=== PATIENT | female | born 1990 | race Caucasian/White ===

== ENCOUNTER 2016-11-13 23:11 | Emergency (ER) | payer MEDICAID ==
[2016-11-13] MEDS ORDERED: LIDOCAINE 1% 2 ML VIAL ONE (23:19)
[2016-11-13 23:28] VITALS: BP 117/72
[2016-11-13] MEDS ORDERED: TETANUS/DIPHTHERIA/PERTUSSIS 0.5 ML SYRINGE IM ONE (23:51)
--- NOTE | 2016-11-13 23:54 | ED Physician Documentation ---
PD HPI UPPER EXT INJURY - Stated complaint Stated Complaint: RT HAND LACERATION - Chief complaint Chief Complaint: Laceration - History obtained from History obtained from: Patient - History of Present Illness Location: Right, Hand Type of injury: Laceration Where injury occurred: Home Timing - onset: How many minutes ago (20) Timing - details: Abrupt onset Improved by: Immobilization Contributing factors: No: Anticoagulated Similar symptoms before: Has not had sx before Recently seen: Not recently seen - Additonal information Additional information: Patient is a 26 year old female with no significant past medical history who is presenting to the emergency department for a finger laceration. patient was trying to cut plastic off a board when she sliced her finger. Patient denied any other trauma and is unsure about her tetanus. Review of Systems Constitutional: denies: Fever, Chills Eyes: reports: Decreased vision, Photophobia Ears: reports: Loss of hearing, Ear pain Nose: denies: Epistaxis GI: denies: Nausea, Vomiting Skin: reports: Laceration (s) Musculoskeletal: reports: Extremity pain Neurologic: reports: Altered mental status. denies: Syncope, LOC Psychiatric: denies: Depressed Immunocompromised: denies: Immunocompromised PD PAST MEDICAL HISTORY - Past Medical History Past Medical History: Yes Respiratory: Asthma Psych: Anxiety Derm: Eczema - Past Surgical History Past Surgical History: No - Present Medications Home Medications: Ambulatory Orders Medication Instructions Recorded Confirmed Albuterol Sulfate 2 mg INH Q4HR PRN 12/27/13 04/06/16 - Allergies Allergies/Adverse Reactions: Allergies Allergy/AdvReac Type Severity Reaction Status Date / Time No Known Drug Allergies Allergy Verified 11/13/16 23:22 - Social History Does the pt smoke?: Yes Smoking Status: Current every day smoker Does the pt drink ETOH?: Yes Does the pt have substance abuse?: No - Immunizations Immunizations are current?: Yes - POLST Patient has POLST: No PD ED PE NORMAL - Vitals Vital signs reviewed: Yes - General General: Alert and oriented X 3, No acute distress - HEENT HEENT: Atraumatic, PERRL - Cardiac Cardiac: RRR, No murmur - Respiratory Respiratory: No respiratory distress - Abdomen Abdomen: Soft - Derm Derm: Normal color - Neuro Neuro: Alert and oriented X 3, No motor deficit, No sensory deficit, Normal speech - Psych Psych: Normal mood, Normal affect PD ED PE EXPANDED - Extremities Extremities: Right finger(s) (2cm laceration on dorsal surface of proximal right second digit) Results - Vitals Vitals: Vital Signs - 24 hr 11/13/16 23:19 Temperature 36.7 C Heart Rate 108 H Respiratory 18 Rate Blood Pressure 117/72 O2 Saturation 100 Oxygen O2 Source Room air Procedures - Laceration (location) right hand Length in cm: 2 Wound type: Curved Neurovascular status: Sensory intact, Motor intact, Vascular intact Anesthesia: Lidocaine 1% Wound Preparation: Chlorhexadine Skin layer closure: Size #-0 - enter number (4), Sutures - enter # (5) Other: Patient tolerated well, No complications, Neurovascular intact, Dressing applied, Tetanus booster given Complexity: Intermediate PD MEDICAL DECISION MAKING - ED course Complexity details: reviewed old records, re-evaluated patient, d/w patient ED course: Patient was seen and examined at bedside. Wound was cleaned and repaired as described above. Patient required no further work up at this time and was stable for discharge with outpatient follow up. Departure - Departure Disposition: 01 Home, Self Care Clinical Impression: Laceration Condition: Good Instructions: ED Laceration Hand Follow-Up: primary,care provider [Other] - As Needed (follow up with your pmd in 5-7 days for suture removal) Comments: Please keep your wound clean and dry. You can apply topical antiobitics if necessary. You should monitor for signs of infection, increased redness, worsening swelling, or discharge. You should follow up with your pmd for any of these symptoms. if not follow up in 5-7 days for suture removal with your pmd. You may return to the emergency department at any time for new, worsening or uncontrollable symptoms.
[2016-11-14] MEDS: BACITRACIN OINT TOP STA (00:06)
[2016-11-14] MEDS: TETANUS/DIPHTHERIA/PERTUSSIS 0.5 ML SYRINGE IM ONE (00:06)
== END 2016-11-14 00:17 | disposition home or self-care (01) ==
LOC: ED 23:11
DX: S61.210A Laceration without foreign body of right index finger without damage to nail, initial encounter (principal); W26.0XXA Contact with knife, initial encounter; Y92.018 Other place in single-family (private) house as the place of occurrence of the external cause; Z23 Encounter for immunization; J45.909 Unspecified asthma, uncomplicated; F17.200 Nicotine dependence, unspecified, uncomplicated
CPT/HCPCS: 12001; 90471; 99283

== ENCOUNTER 2017-03-13 16:21 | Outpatient (CLI) | payer MEDICAID | END 2017-03-13 16:22 | disposition critical access hospital (66) | LOC: EMS 16:21 | PROVIDERS: ATTEND Surgery | DX: O99.89 Other specified diseases and conditions complicating pregnancy, childbirth and the puerperium (principal); R10.30 Lower abdominal pain, unspecified | CPT/HCPCS: A0425; A0429 ==

== ENCOUNTER 2017-03-13 16:58 | Outpatient (CLI) | payer MEDICAID ==
[2017-03-13 17:04] VITALS: BP 90/64
[2017-03-13 18:15] LABS: BILIRUBIN,URINE NEGATIVE (NEGATIVE)
[2017-03-13 18:19] LABS: UA CHARGE (STRIP ONLY) YES; UR CULTURE IF IND NOT INDICATED
== END 2017-03-13 20:30 | disposition home or self-care (01) ==
LOC: WFO 16:58 → FBP 16:59 → WFO 20:30
PROVIDERS: ATTEND Obstetrics & Gynecology
DX: O46.93 Antepartum hemorrhage, unspecified, third trimester (principal); Z3A.34 34 weeks gestation of pregnancy
CPT/HCPCS: 80306; 81001; 81003; 82731; 87077; 87081; 87086; 87797; 99213

== ENCOUNTER 2017-04-18 19:39 | Outpatient (CLI) | payer MEDICAID ==
[2017-04-18 19:57] VITALS: BP 117/71
== END 2017-04-18 20:26 | disposition home or self-care (01) ==
LOC: WFO 19:39 → FBP 19:45 → WFO 20:26
PROVIDERS: ATTEND Obstetrics & Gynecology
DX: O36.8130 Decreased fetal movements, third trimester, not applicable or unspecified (principal); Z3A.39 39 weeks gestation of pregnancy
CPT/HCPCS: 59025

== ENCOUNTER 2017-09-10 08:00 | Outpatient (CLI) | payer MEDICAID ==
[2017-09-10 19:18] LABS: BASOPHILS % (AUTO) 0.4 %; EOSINOPHILS # (AUTO) 0.2 10^3/uL (0.0-0.7); EOSINOPHILS % (AUTO) 1.4 %; HGB - HEMOGLOBIN 12.7 g/dL (12.0-16.0); LYMPHOCYTES # (AUTO) 2.8 10^3/uL (1.5-3.5); LYMPHOCYTES % (AUTO) 25.2 %; MEAN CORPUSCULAR HEMOGLOBIN 24.9 pg (27.0-31.0); MEAN CORPUSCULAR HGB CONC 31.5 g/dL (32.0-36.0); MEAN CORPUSCULAR VOLUME 79.3 fL (81.0-99.0); MEAN PLATELET VOLUME 8.1 fL (7.9-10.8); MONOCYTES # (AUTO) 0.9 10^3/uL (0.0-1.0); MONOCYTES % (AUTO) 7.6 %; NEUTROPHILS # (AUTO) 7.4 10^3/uL (1.5-6.6); NEUTROPHILS % (AUTO) 65.4 %; PLT - PLATELET COUNT 404 10^3/uL (130-450); RED BLOOD COUNT 5.11 10^6/uL (4.20-5.40); RED CELL DISTRIBUTION WIDTH 14.6 % (12.0-15.0); WHITE BLOOD COUNT 11.3 x10^3/uL (4.8-10.8)
[2017-09-10 19:30] LABS: THYROID STIMULATING HORMONE 1.04 uIU/mL (0.34-5.60)
[2017-09-10 19:41] LABS: FOLATE 22.32 ng/mL (5.90 - >24.8)
== END 2017-09-10 08:01 | disposition home or self-care (01) ==
LOC: LAB.N 08:00
PROVIDERS: ATTEND Nurse Practitioner
DX: R53.83 Other fatigue (principal)
CPT/HCPCS: 36415; 82306; 82607; 82746; 84443; 85025

== ENCOUNTER 2020-07-19 18:52 | Emergency (ER) | payer MEDICAID ==
[2020-07-19] MEDS ORDERED: AZITHROMYCIN INJ 1,000 MG in SODIUM CHLORIDE 0.9% 250 ML IV ONE (18:53)
[2020-07-19 19:38] LABS: BILIRUBIN,URINE NEGATIVE (NEGATIVE); GLUCOSE, URINE (UA) NEGATIVE (NEGATIVE); KETONES,URINE (UA) NEGATIVE (NEGATIVE); LEUKOCYTE ESTERASE, URINE NEGATIVE (NEGATIVE); NITRITE,URINE NEGATIVE (NEGATIVE); OCCULT BLOOD,URINE NEGATIVE (NEGATIVE); PROTEIN,URINE NEGATIVE (NEGATIVE); UROBILINOGEN,URINE 0.2 (NORMAL) E.U./dL (NORMAL)
[2020-07-19 19:41] LABS: CLARITY,URINE CLEAR (CLEAR); HCG UR QUAL NEGATIVE
[2020-07-19 19:45] LABS: BASOPHILS # (AUTO) 0.1 10^3/uL (0.0-0.1); BASOPHILS % (AUTO) 0.3 %; EOSINOPHILS # (AUTO) 0.2 10^3/uL (0.0-0.7); EOSINOPHILS % (AUTO) 1.4 %; HGB - HEMOGLOBIN 13.3 g/dL (12.0-16.0); LYMPHOCYTES # (AUTO) 2.3 10^3/uL (1.5-3.5); MEAN CORPUSCULAR HGB CONC 32.4 g/dL (32.0-36.0); MEAN CORPUSCULAR VOLUME 89.5 fL (81.0-99.0); MEAN PLATELET VOLUME 9.1 fL (7.9-10.8); MONOCYTES # (AUTO) 1.1 10^3/uL (0.0-1.0); MONOCYTES % (AUTO) 6.8 %; NEUTROPHILS # (AUTO) 12.7 10^3/uL (1.5-6.6); NEUTROPHILS % (AUTO) 77.2 %; PLT - PLATELET COUNT 373 10^3/uL (130-450); RED BLOOD COUNT 4.58 10^6/uL (4.20-5.40); RED CELL DISTRIBUTION WIDTH 12.2 % (12.0-15.0); WHITE BLOOD COUNT 16.5 x10^3/uL (4.8-10.8)
[2020-07-19 20:00] LABS: ALBUMIN 4.4 g/dL (3.2-5.5); ALBUMIN/GLOBULIN RATIO 1.4 (1.0-2.2); BILIRUBIN,TOTAL 0.4 mg/dL (0.2-1.0); CALCIUM 9.4 mg/dL (8.5-10.3); CREATININE 0.6 mg/dL (0.4-1.0); TOTAL PROTEIN 7.5 g/dL (6.7-8.2)
--- NOTE | 2020-07-19 21:08 | ED Physician Documentation ---
PD HPI ABD PAIN - Stated complaint Stated Complaint: RT SIDE PX - Chief complaint Chief Complaint: Abd Pain - History obtained from History obtained from: Patient - History of Present Illness Timing - onset: Today Timing - duration: Days (She states she had lower abdominal pain particularly on the right which started migrated up towards the right upper quadrant abdomen and the right shoulder through the day. She has noticed a yellow vaginal discharge for the last couple of days.) Timing - details: Gradual onset, Still present Quality: Cramping, Aching, Pain Location: RUQ, Suprapubic Radiation: Right shoulder Improved by: No: Eating Worsened by: Moving, Breathing, Palpation. No: Eating Associated symptoms: Nausea, Vaginal dc (Last sexually active about 2 weeks ago with a new partner.). No: Fever, Vomiting, Diarrhea, Dysuria, Vaginal bleeding Similar symptoms before: Has not had sx before Recently seen: Not recently seen Review of Systems Constitutional: denies: Fever, Chills Nose: denies: Rhinorrhea / runny nose, Congestion Throat: denies: Sore throat Respiratory: denies: Cough GI: reports: Abdominal Pain, Nausea. denies: Vomiting, Diarrhea : reports: Discharge. denies: Dysuria, Frequency Skin: denies: Rash, Lesions Neurologic: reports: Generalized weakness. denies: Focal weakness, Numbness, Near syncope Immunocompromised: denies: Immunocompromised PD PAST MEDICAL HISTORY - Past Medical History Respiratory: Asthma Psych: Anxiety Derm: Eczema - Past Surgical History Past Surgical History: No - Present Medications Home Medications: Ambulatory Orders Medication Instructions Recorded Confirmed Albuterol Sulfate 2 mg INH Q4HR PRN 12/27/13 07/19/20 - Allergies Allergies/Adverse Reactions: Allergies Allergy/AdvReac Type Severity Reaction Status Date / Time No Known Drug Allergies Allergy Verified 07/19/20 19:12 - Social History Does the pt smoke?: Yes Smoking Status: Current every day smoker Does the pt drink ETOH?: Yes Does the pt have substance abuse?: No - Immunizations Immunizations are current?: Yes - POLST Patient has POLST: No PD ED PE NORMAL - Vitals Vital signs reviewed: Yes - General General: Alert and oriented X 3, Well developed/nourished, Other (Appears in pain and discomfort for abdominal pain. No pain with range of motion of the shoulder but states it does hurt there) - HEENT HEENT: Pharynx benign - Neck Neck: Supple, no meningeal sign, No adenopathy - Cardiac Cardiac: RRR, No murmur - Respiratory Respiratory: Clear bilaterally - Abdomen Abdomen: Normal bowel sounds, Soft, Non distended, No organomegaly, Other (Tender along the right abdomen both upper and lower quadrants. There is guarding to palpation. No percussion or rebound tenderness. There is some suprapubic tenderness as well with some mild rebound there.) - Female Female : Acute Care Certified Nursing Assistant present, Other (The external genitalia is normal. The vaginal vault shows considerable amount of yellow to greenish discharge. There is endocervical discharge with some redness and inflammation of the cervix as well. Tenderness on exam with the speculum.) - Rectal Rectal: Deferred - Back Back: No CVA TTP - Derm Derm: Normal color, Warm and dry Results - Vitals Vitals: Vital Signs - 24 hr 07/19/20 07/19/20 07/20/20 19:13 21:04 01:02 Temperature 37.5 C 36.5 C Heart Rate 100 99 Respiratory 22 16 Rate Blood Pressure 122/82 H 109/74 O2 Saturation 100 100 Oxygen O2 Source Room air - Labs Labs: Laboratory Tests 07/19/20 07/19/20 07/19/20 19:29 19:29 19:30 WBC 16.5 H RBC 4.58 Hgb 13.3 Hct 41.0 MCV 89.5 MCH 29.0 MCHC 32.4 RDW 12.2 Plt Count 373 MPV 9.1 Neut # (Auto) 12.7 H Lymph # (Auto) 2.3 Taylor # (Auto) 1.1 H Eos # (Auto) 0.2 Baso # (Auto) 0.1 Absolute Nucleated RBC 0.00 Nucleated RBC % 0.0 Sodium 139 Potassium 3.2 L Chloride 103 Carbon Dioxide 27 Anion Gap 9.0 BUN 15 Creatinine 0.6 Estimated GFR (MDRD) 116 Glucose 75 Calcium 9.4 Total Bilirubin 0.4 AST 18 ALT 12 Alkaline Phosphatase 66 Total Protein 7.5 Albumin 4.4 Globulin 3.1 Albumin/Globulin Ratio 1.4 Lipase 30 Urine Color YELLOW Urine Clarity CLEAR Urine pH 6.0 Ur Specific Drury 1.025 Urine Protein NEGATIVE Urine Glucose (UA) NEGATIVE Urine Ketones NEGATIVE Urine Occult Blood NEGATIVE Urine Nitrite NEGATIVE Urine Bilirubin NEGATIVE Urine Urobilinogen 0.2 (NORMAL) Ur Leukocyte Esterase NEGATIVE Ur Microscopic Review NOT INDICATED Urine Culture Comments NOT INDICATED Urine HCG, Qual NEGATIVE C. glabrata (PCR) C. krusei (PCR) Samreen species DNA T. vaginalis (PCR) Bact Vaginosis (PCR) 07/19/20 22:49 WBC RBC Hgb Hct MCV MCH MCHC RDW Plt Count MPV Neut # (Auto) Lymph # (Auto) Taylor # (Auto) Eos # (Auto) Baso # (Auto) Absolute Nucleated RBC Nucleated RBC % Sodium Potassium Chloride Carbon Dioxide Anion Gap BUN Creatinine Estimated GFR (MDRD) Glucose Calcium Total Bilirubin AST ALT Alkaline Phosphatase Total Protein Albumin Globulin Albumin/Globulin Ratio Lipase Urine Color Urine Clarity Urine pH Ur Specific Drury Urine Protein Urine Glucose (UA) Urine Ketones Urine Occult Blood Urine Nitrite Urine Bilirubin Urine Urobilinogen Ur Leukocyte Esterase Ur Microscopic Review Urine Culture Comments Urine HCG, Qual C. glabrata (PCR) NEGATIVE C. krusei (PCR) NEGATIVE Samreen species DNA NEGATIVE T. vaginalis (PCR) NEGATIVE Bact Vaginosis (PCR) POSITIVE A - Rads (name of study) abd CT Radiology: Prelim report reviewed (no acvute process), See rad report PD MEDICAL DECISION MAKING - ED course Complexity details: reviewed results (Normal abdominal CT. Given her vaginal discharge and tenderness there, I am presuming her abdominal pain is from tracking of infection through the tubes and into the gutter. She is improved with IV fluids and pain meds.), re-evaluated patient, considered differential (Seems likely pelvic infectious disease or vaginitis. However she is very tende r along the right abdomen so consider the possibility of tubo-ovarian abscess or appendix. We will get CT scan.), d/w patient Departure - Departure Disposition: 01 Home, Self Care Clinical Impression: Right sided abdominal pain, PID (acute pelvic inflammatory disease) Condition: Stable Record reviewed to determine appropriate education?: Yes Discharge Date/Time: 07/20/20 01:03
[2020-07-19] MEDS ORDERED: ONDANSETRON 4 MG/2 ML VIAL IVP STA (21:41)
[2020-07-19] MEDS ORDERED: SODIUM CHLORIDE 0.9% 1,000 ML IV STA (21:41)
[2020-07-19] MEDS ORDERED: KETOROLAC 15 MG/ML VIAL IVP STA (21:41)
[2020-07-19] MEDS ORDERED: HYDROmorphone 1 MG/ML CARPUJECT IVP STA (21:41)
[2020-07-19] MEDS ORDERED: IOVERSOL 320 100 ML VIAL IVP ONE (21:56)
[2020-07-19] MEDS ORDERED: oxyCODONE/ACET 5/325 Prepack 4 PO ONE (23:11)
[2020-07-19] MEDS ORDERED: ACETAMINOPHEN 325 MG TABLET PO ONE (23:11)
[2020-07-19] MEDS ORDERED: cefTRIAXone 1 GM VIAL ONE (23:12)
[2020-07-20] MEDS ORDERED: IOVERSOL 320 100 ML VIAL IVP ONE (00:28)
[2020-07-20 01:03] VITALS: BP 109/74
[2020-07-20 03:41] LABS: CANDIDA GROUP DNA NEGATIVE (NEGATIVE); CANDIDA KRUSEI DNA NEGATIVE (NEGATIVE); TRICHOMONAS VAGINALIS DNA NEGATIVE (NEGATIVE)
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
--- NOTE | 2020-07-20 08:45 | CT Report ---
PROCEDURE: Abdomen/Pelvis W INDICATIONS: right sided abd pain today CONTRAST: IV CONTRAST: Optiray 320 ml: 100 PO CONTRAST: *NO PO CONTRAST TECHNIQUE: After the administration of intravenous contrast, 5 mm thick sections acquired from the diaphragms to the symphysis. 5 mm thick coronal and sagittal reformats were acquired. For radiation dose reducti on, the following was used: automated exposure control, adjustment of mA and/or kV according to rigo ent size. COMPARISON: None. FINDINGS: Image quality: Excellent. ABDOMEN: Lung bases: There is mild dependent atelectasis bilaterally. Heart size is normal. Solid organs: Evaluation of the liver demonstrates no focal hepatic lesions. Gallbladder appears with in normal limits without calcified gallstones. Biliary system is non dilated. The spleen is normal i n size. Pancreas enhances normally without peripancreatic fat stranding or fluid collections. No adr enal nodules. Kidneys demonstrate no hydronephrosis. Peritoneum and bowel: Bowel loops demonstrate normal wall thickness and caliber. The appendix is no rmal in appearance. No free fluid or air. Nodes and vessels: No retroperitoneal or mesenteric adenopathy by size criteria. Aorta and inferior vena cava are normal in size. Miscellaneous: No ventral hernias. PELVIS: Genitourinary: Bladder wall thickness is normal. The ovaries are mildly prominent in size. Miscellaneous: No inguinal hernias or adenopathy. Bones: No suspicious bony lesions. No vertebral body compression fractures. IMPRESSION: 1. No definite acute intra-abdominal abnormality. Concordant with preliminary report. Reviewed by: Vasquez Morton MD on 07/20/2020 8:44 AM [facility] Approved by: Vasquez Morton MD on 07/20/2020 8:44 AM PST Station ID: [id number]
[2020-07-20 22:13] LABS: TRICHOMONAS VAGINALIS DNA NEGATIVE (NEGATIVE)
== END 2020-07-20 01:03 | disposition home or self-care (01) ==
LOC: ED 18:52
DX: N73.9 Female pelvic inflammatory disease, unspecified (principal); R10.11 Right upper quadrant pain; F17.200 Nicotine dependence, unspecified, uncomplicated
CPT/HCPCS: 36415; 74177; 80053; 81003; 81025; 83690; 85025; 87481; 87491; 87591; 87661; 87801; 99284; A9270; J1170; Q9967; 81001; 87086

== ENCOUNTER 2021-02-21 16:48 | Emergency (ER) | payer MEDICAID ==
[2021-02-21] MEDS ORDERED: IBUPROFEN 600 MG TABLET PO STA (17:05)
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
--- NOTE | 2021-02-21 17:53 | XRAY Report ---
PROCEDURE: Hip w/Pelvis 2-3V RT INDICATIONS: right groin pain TECHNIQUE: AP pelvis with lateral view(s) of the right hip(s). COMPARISON: CT abdomen/pelvis 07/19/2020.. FINDINGS: Bones: No fractures or dislocations. Pelvic ring appears intact. No suspicious bony lesions. Soft tissues: The visualized bowel gas pattern is normal. No suspicious soft tissue calcifications. IMPRESSION: Minimal symmetric hip joint osteoarthritis. No trauma found, no subluxation present. Reviewed by: Marek Naranjo MD on 02/21/2021 5:51 PM PDT Approved by: Marek Naranjo MD on 02/21/2021 5:51 PM PDT Station ID: [id number]
[2021-02-21 18:17] VITALS: BP 116/74
--- NOTE | 2021-02-21 18:43 | Ultrasound Report ---
PROCEDURE: Pelvic Limited or F/U INDICATIONS: RIGHT GROIN PAIN, OBTURATOR HERNIA TECHNIQUE: Real-time transabdominal scanning was performed of the right groin region, with image documentation. COMPARISON: Prior CT abdomen/pelvis 07/19/2020. FINDINGS: Inguinal canal: There is a reducible fat-containing hernia extending through the inguinal canal thro ugh the hiatus measuring up without evidence of incarceration or strangulation. IMPRESSION: Reducible fat-containing right inguinal hernia, no suspicion for strangulation. Mesenter ic or omental fat both can produce this appearance. Reviewed by: Marek Naranjo MD on 02/21/2021 6:41 PM PDT Approved by: Marek Naranjo MD on 02/21/2021 6:41 PM PDT Station ID: [id number]
== END 2021-02-21 18:16 | disposition home or self-care (01) ==
LOC: ED 16:48
DX: K45.8 Other specified abdominal hernia without obstruction or gangrene (principal); F17.200 Nicotine dependence, unspecified, uncomplicated
CPT/HCPCS: 73502; 76857; 99283; 99284; A9270

== ENCOUNTER 2021-03-01 18:55 | Emergency (ER) | payer MEDICAID ==
[2021-03-01 19:41] LABS: BASOPHILS % (AUTO) 0.4 %; EOSINOPHILS # (AUTO) 0.2 10^3/uL (0.0-0.7); EOSINOPHILS % (AUTO) 1.8 %; HCT - HEMATOCRIT 37.8 % (37.0-47.0); HGB - HEMOGLOBIN 12.2 g/dL (12.0-16.0); LYMPHOCYTES # (AUTO) 2.4 10^3/uL (1.5-3.5); LYMPHOCYTES % (AUTO) 28.6 %; MEAN CORPUSCULAR HEMOGLOBIN 28.8 pg (27.0-31.0); MEAN CORPUSCULAR HGB CONC 32.3 g/dL (32.0-36.0); MEAN CORPUSCULAR VOLUME 89.4 fL (81.0-99.0); MEAN PLATELET VOLUME 9.3 fL (7.9-10.8); MONOCYTES # (AUTO) 0.6 10^3/uL (0.0-1.0); MONOCYTES % (AUTO) 6.9 %; NEUTROPHILS # (AUTO) 5.3 10^3/uL (1.5-6.6); NEUTROPHILS % (AUTO) 62.1 %; PLT - PLATELET COUNT 319 10^3/uL (130-450); RED BLOOD COUNT 4.23 10^6/uL (4.20-5.40); RED CELL DISTRIBUTION WIDTH 12.1 % (12.0-15.0); WHITE BLOOD COUNT 8.5 x10^3/uL (4.8-10.8)
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
[2021-03-01 19:54] LABS: ALBUMIN 4.1 g/dL (3.2-5.5); ALBUMIN/GLOBULIN RATIO 1.3 (1.0-2.2); BILIRUBIN,TOTAL 0.4 mg/dL (0.2-1.0); CALCIUM 9.1 mg/dL (8.5-10.3); CREATININE 0.6 mg/dL (0.4-1.0); POTASSIUM 3.7 mmol/L (3.5-5.0); TOTAL PROTEIN 7.2 g/dL (6.7-8.2)
--- NOTE | 2021-03-01 20:41 | XRAY Report ---
PROCEDURE: Cervical Spine 2 View INDICATIONS: numbness in arms TECHNIQUE: 2 views of the cervical spine were acquired. COMPARISON: None. FINDINGS: Bones: No acute fractures or dislocations to the C7 level. There is straightening of the normal cer vical lordosis, which is may be related to positioning or muscle spasm. No suspicious bony lesions. Disc space narrowing and degenerative endplate changes are seen at the C5-6 and C6-7 levels. Multilev el uncovertebral joint and facet hypertrophy is seen. There are no cervical ribs. Soft tissues: No prevertebral soft tissue swelling. IMPRESSION: No acute osseous abnormality. Multilevel spondylosis. Reviewed by: Paul Mercer MD on 03/01/2021 8:40 PM PDT Approved by: Paul Mercer MD on 03/01/2021 8:40 PM PDT Station ID: [id number]
[2021-03-01 21:02] VITALS: BP 105/67
== END 2021-03-01 21:11 | disposition home or self-care (01) ==
LOC: ED 18:55
DX: M54.12 Radiculopathy, cervical region (principal); F17.200 Nicotine dependence, unspecified, uncomplicated
CPT/HCPCS: 36415; 80053; 83605; 83690; 85025; 99284

== ENCOUNTER 2021-11-10 17:53 | Emergency (ER) | payer MEDICAID ==
[2021-11-10 18:10] VITALS: BP 129/72
[2021-11-10] MEDS ORDERED: LIDOCAINE 1%-EPI 1:100000 20 ML MDV SUBQ STA (19:28)
[2021-11-10] MEDS ORDERED: HYDROcod/ACET 5/325 Prepack 4 PO STA (19:40)
[2021-11-10] MEDS ORDERED: DOXYCYCLINE 100 MG TABLET PO STA (19:40)
--- NOTE | 2021-11-10 19:44 | ED Physician Documentation ---
PD HPI WOUND RECHECK - Stated complaint Stated Complaint: ARMPIT PX - Chief complaint Chief Complaint: Wound - Histroy obtained from History obtained from: Patient (1 week painful abscess left axilla. No fevers or chills. No history of similar prior. 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 HEENT: None Psych: Anxiety Musculoskeletal: None Derm: Eczema - Past Surgical History Past Surgical History: No - Present Medications Home Medications: Ambulatory Orders Medication Instructions Recorded Confirmed Albuterol Sulf [Ventolin Hfa 1 - 2 puffs INH Q4HR PRN #1 inhaler 02/21/21 03/01/21 Inhaler] Doxycycline Hyclate 100 mg PO BID #14 tab.sr 11/10/21 HYDROcod/ACETAM 5/325 [Mineral 5/325] 1 - 2 tab PO Q6H PRN #7 tablet 11/10/21 - Allergies Allergies/Adverse Reactions: Allergies Allergy/AdvReac Type Severity Reaction Status Date / Time No Known Drug Allergies Allergy Verified 03/01/21 19:11 - Social History Does the pt smoke?: Yes Smoking Status: Current every day smoker Does the pt drink ETOH?: Yes Does the pt have substance abuse?: No - Immunizations Immunizations are current?: Yes - POLST Patient has POLST: No PD ED PE NORMAL - Vitals Vital signs reviewed: Yes - General General: Alert and oriented X 3, No acute distress - Derm Derm: Other (Small pointed abscess with minimal surrounding cellulitis in the left axilla.) - Neuro Neuro: Alert and oriented X 3, Normal speech Results - Vitals Vitals: Vital Signs - 24 hr 11/10/21 18:06 Temperature 36.6 C Heart Rate 117 H Respiratory 18 Rate Blood Pressure 129/72 O2 Saturation 99 Oxygen O2 Source Room air Procedures - Abscess I&D (location) Left axilla Preparation: Alcohol, Lidocaine 2% Incision: Incised with scalpel, Purulent drainage, Loculations broken, Culture obtained Other: Pt tolerated well, Dressing applied, Antibiotic prescribed Departure - Departure Disposition: 01 Home, Self Care Clinical Impression: Abscess of left axilla Condition: Good Record reviewed to determine appropriate education?: Yes Instructions: ED Abscess IandD Prescriptions: Doxycycline Hyclate 100 mg PO BID #14 tab.sr HYDROcod/ACETAM 5/325 [Mineral 5/325] 1 - 2 tab PO Q6H PRN #7 tablet PRN Reason: Pain Comments: I sent your prescription electronically to the [facility] pharmacy here in [place]. We are performing a wound culture, the results should be done in 48-72 hours. If antibiotic change is necessary we will call you. Return if worse in the meantime, especially if you develop increased pain, fevers, cannot keep down the medication. Otherwise follow-up with your physician in approximately 2-3 days. I am prescribing a short course of narcotic pain medication for you. These are potentially dangerous and addictive medications that should be used carefully. These medications may constipate you. Take an qhcp-uxd-ebnhhvb stool softener (docusate) twice daily with plenty of water while taking these medications. If you go 24 hours without a bowel movement, take deyr-kyt-zisqbok miralax, per package instructions. Do not drink or drive while taking these medications. If you received narcotic or sedating medications while in the emergency department, do not drive for 24 hours. Store this medication in a safe, secure place and out of reach of children. It is a violation of federal law to give or sell this medication to another person or to use in a manner other than prescribed. The ED will not refill narcotic prescriptions, including prescriptions lost or stolen. To dispose of unwanted medications: 1. [facility] at [address] [place] [address] in [place] has a medication drop box. They accept prescription medications (in pill form) Saturday through Saturday 9:00 a.m. to 5:00 p.m. 2. The [facility] Department accepts prescription medications (in pill form only) for disposal year round. Call for more information. 3. Contact the [facility] for the next [facility] sponsored prescription drug collection event. , [phone], or [phone]; Note that many narcotic pain relievers also contain Tylenol/acetaminophen. Please ensure that your total dose of acetaminophen from all sources does not exceed 3 g (3000 mg) per day.
== END 2021-11-10 20:09 | disposition home or self-care (01) ==
LOC: ED 17:53
DX: L02.412 Cutaneous abscess of left axilla (principal); F17.200 Nicotine dependence, unspecified, uncomplicated
CPT/HCPCS: 10060; 87070; 87181; 87205; 99283; A9270

== ENCOUNTER 2022-01-26 08:00 | Outpatient (CLI) | payer MEDICAID ==
[2022-01-27 00:01] LABS: CHLAMYDIA TRACHOMATIS DNA NEGATIVE (NEGATIVE); NEISSERIA GONORRHOEAE DNA NEGATIVE (NEGATIVE)
[2022-01-27 01:24] LABS: TRICHOMONAS VAGINALIS DNA POSITIVE (NEGATIVE)
== END 2022-01-26 23:59 | disposition home or self-care (01) ==
LOC: LAB 08:00
PROVIDERS: ATTEND Nurse Practitioner
DX: Z11.3 Encounter for screening for infections with a predominantly sexual mode of transmission (principal)
CPT/HCPCS: 87491; 87591; 87661

== ENCOUNTER 2022-04-25 23:27 | Emergency (ER) | payer MEDICAID ==
[2022-04-25 23:35] VITALS: BP 104/74
== END 2022-04-26 01:25 | disposition left against medical advice (07) ==
LOC: ED 23:27
DX: Z53.21 Procedure and treatment not carried out due to patient leaving prior to being seen by health care provider (principal)

== ENCOUNTER 2022-05-27 13:38 | Emergency (ER) | payer MEDICAID | END 2022-05-27 14:09 | disposition left against medical advice (07) | LOC: ED 13:38 | DX: Z53.21 Procedure and treatment not carried out due to patient leaving prior to being seen by health care provider (principal) ==

== ENCOUNTER 2022-07-17 16:04 | Emergency (ER) | payer OTHER, MEDICAID ==
[2022-07-17] MEDS ORDERED: HYDROcod/ACETAM 5/325 MG TABLET PO STA (19:38)
[2022-07-17 19:56] VITALS: BP 127/75
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
== END 2022-07-17 20:05 | disposition home or self-care (01) ==
LOC: ED 16:04
DX: S16.1XXA Strain of muscle, fascia and tendon at neck level, initial encounter (principal); S39.012A Strain of muscle, fascia and tendon of lower back, initial encounter; V43.52XA Car driver injured in collision with other type car in traffic accident, initial encounter; Y93.89 Activity, other specified; F17.200 Nicotine dependence, unspecified, uncomplicated
CPT/HCPCS: 70450; 71046; 72100; 72125; 99283; 99284; A9270

== ENCOUNTER 2022-10-16 13:15 | Outpatient (CLI) | payer MEDICAID, OTHER ==
[2022-10-16 20:18] LABS: CHLAMYDIA TRACHOMATIS DNA NEGATIVE (NEGATIVE)
[2022-10-16 20:20] LABS: NEISSERIA GONORRHOEAE DNA NEGATIVE (NEGATIVE)
[2022-10-16 23:48] LABS: BACTERIAL VAGINOSIS DNA NEGATIVE (NEGATIVE); CANDIDA GLABRATA DNA NEGATIVE (NEGATIVE); CANDIDA GROUP DNA NEGATIVE (NEGATIVE); CANDIDA KRUSEI DNA NEGATIVE (NEGATIVE); TRICHOMONAS VAGINALIS DNA NEGATIVE (NEGATIVE)
[2022-10-17 05:11] LABS: HSV 1 IGG TYPE SPEC <0.91 index (0.00-0.90); HSV 2 IGG TYPE SPEC <0.91 index (0.00-0.90); RPR Non Reactive (Non Reactive)
[2022-10-17 07:10] LABS: HCV AB Non Reactive (Non Reactive); HIV SCREEN 4TH GENERATION Non Reactive (Non Reactive)
== END 2022-10-16 13:30 | disposition home or self-care (01) ==
LOC: LAB.N 13:15
PROVIDERS: ATTEND Registered Nurse
DX: Z11.3 Encounter for screening for infections with a predominantly sexual mode of transmission (principal)
CPT/HCPCS: 36415; 81514; 86592; 86695; 86696; 86803; 87389; 87491; 87591; 87661

== ENCOUNTER 2022-11-22 11:30 | Outpatient (CLI) | payer MEDICAID | END 2022-11-22 11:45 | disposition home or self-care (01) | LOC: LAB.N 11:30 | PROVIDERS: ATTEND Nurse Practitioner | DX: R07.0 Pain in throat (principal) | CPT/HCPCS: 87070 ==

== ENCOUNTER 2023-06-27 22:14 | Emergency (ER) | payer MEDICAID ==
[2023-06-27] MEDS ORDERED: TETANUS/DIPHTHERIA/PERTUSSIS 0.5 ML SYRINGE IM ONE (22:24)
[2023-06-27] MEDS ORDERED: lidocaine 1% 20 ML MDV SUBQ STA (22:52)
--- NOTE | 2023-06-27 23:35 | ED Physician Documentation ---
History of Present Illness - Stated complaint Stated Complaint: LT LEG LAC - Chief complaint Chief Complaint: Laceration - History obtained from History obtained from: Patient - History of Present Illness Timing: Today Pain level max: 0 Pain level now: 0 - Additonal information Additional information: 33-year-old female was attempting to chop a [place] tree tonight when she accidentally struck herself in the left lower extremity with a small ax. Unknown last tetanus shot. No active bleeding. She placed a bandage on the wound and came into the emergency department. Able to walk under her own power. 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: None : None HEENT: None Psych: Depression, Anxiety Musculoskeletal: None Derm: Eczema - Past Surgical History Past Surgical History: No - Present Medications Home Medications: Ambulatory Orders Medication Instructions Recorded Confirmed Albuterol Sulf [Ventolin Hfa 1 - 2 puffs INH Q4HR PRN #1 inhaler 02/21/21 07/17/22 Inhaler] HYDROcod/ACETAM 5/325 [[place] 5/325] 1 - 2 ea PO Q6H PRN #14 tablet 07/17/22 Sertraline [Zoloft] 50 mg PO DAILY 07/17/22 07/17/22 buPROPion [Wellbutrin Sr] 150 mg PO DAILY 07/17/22 07/17/22 - Allergies Allergies/Adverse Reactions: Allergies Allergy/AdvReac Type Severity Reaction Status Date / Time No Known Drug Allergies Allergy Verified 06/27/23 22:17 - Social History Does the pt smoke?: Yes Smoking Status: Current every day smoker Does the pt drink ETOH?: No Does the pt have substance abuse?: No - Immunizations Immunizations are current?: No Immunizations: TDAP >10years/unknown - POLST Patient has POLST: No PD ED PE NORMAL - Vitals Vital signs reviewed: Yes - General General: Alert and oriented X 3, No acute distress - HEENT HEENT: Moist mucous membranes - Neck Neck: Supple, no meningeal sign - Derm Derm: Warm and dry - Extremities Extremities: Other (There is a 4 cm laceration to the anteromedial aspect of the left lower extremity, into the subcutaneous fat. This is lmedial to the bone. Neurovascular intact.) - Neuro Neuro: Alert and oriented X 3 Results - Vitals Vitals: Vital Signs - 24 hr 06/27/23 06/27/23 22:17 23:35 Temperature 36.5 C Heart Rate 100 99 Respiratory 16 15 Rate Blood Pressure 119/84 H 116/69 O2 Saturation 100 99 Oxygen O2 Source Room air Procedures - Laceration (location) L leg Length in cm: 4 Wound type: Linear, Into subcut fat, Clean Neurovascular status: Sensory intact, Motor intact, Vascular intact Anesthesia: Lidocaine 1% Wound preparation: Irrigated copiously NS, Wound explored, To the base Skin layer closure: Dimitrios Other: Patient tolerated well, No complications, Neurovascular intact, Dressing applied, Tetanus booster given PD Medical Decision Making - ED course Complexity details: considered differential, d/w patient ED course: Tdap given. Laceration repaired with dimitrios. Patient tolerated well. No complications. Neurovascular intact. No bony injury. Warnings of infection and instructions on wound care given at bedside. Patient counseled regarding signs and symptoms for which I believe and urgent re-evaluation would be necessary. Patient with good understanding of and agreement to plan and is comfortable going home at this time This document was made in part using voice recognition software. While efforts are made to proofread this document, sound alike and grammatical errors may occur. Departure - Departure Disposition: 01 Home, Self Care Clinical Impression: Leg laceration Qualifiers: Encounter type: initial encounter Laterality: left Qualified Code(s): S81.812A - Laceration without foreign body, left lower leg, initial encounter Condition: Good Instructions: ED Laceration Ext Sutr Stap Tape Comments: Please follow-up with your doctor in approximately 10 to 14 days for staple removal. Return if you notice redness, swelling or drainage from the wound. These are signs that could be getting infected. You were given a tetanus shot today. Forms: PCP List Discharge Date/Time: 06/27/23 23:40
[2023-06-27 23:42] VITALS: BP 116/69; O2SAT 99
== END 2023-06-27 23:40 | disposition home or self-care (01) ==
LOC: ED 22:14
DX: S81.812A Laceration without foreign body, left lower leg, initial encounter (principal); W27.0XXA Contact with workbench tool, initial encounter; Y93.89 Activity, other specified; F17.200 Nicotine dependence, unspecified, uncomplicated; Z23 Encounter for immunization; Z79.899 Other long term (current) drug therapy
CPT/HCPCS: 12002; 99283

== ENCOUNTER 2024-02-19 08:00 | Outpatient (CLI) | payer MEDICAID ==
[2024-02-20 00:52] LABS: CHLAMYDIA TRACHOMATIS DNA NEGATIVE (NEGATIVE); NEISSERIA GONORRHOEAE DNA NEGATIVE (NEGATIVE); TRICHOMONAS VAGINALIS DNA NEGATIVE (NEGATIVE)
== END 2024-02-19 23:59 | disposition home or self-care (01) ==
LOC: LAB.WC 08:00
PROVIDERS: ATTEND Obstetrics & Gynecology
DX: Z11.3 Encounter for screening for infections with a predominantly sexual mode of transmission (principal)
CPT/HCPCS: 87491; 87591; 87661

== ENCOUNTER 2024-03-24 10:36 | Day surgery (SDC) | payer MEDICAID ==
[2024-03-24] MEDS: LACTATED RINGERS 1,000 ML IV ONE ×2 (10:43→12:50)
[2024-03-24] MEDS ORDERED: ACETAMINOPHEN 325 MG TABLET PO ONE ×2 (10:50)
[2024-03-24] MEDS ORDERED: diphenhydrAMINE INJ 50 MG/ML VIAL ONE ×2 (10:50→11:45)
[2024-03-24] MEDS ORDERED: fentaNYL 100 MCG/2 ML VIAL ONE ×2 (10:50→11:35)
[2024-03-24] MEDS ORDERED: KETOROLAC 30 MG/ML VIAL ONE ×2 (10:50→11:45)
[2024-03-24] MEDS ORDERED: MIDAZOLAM 2 MG/2 ML VIAL ONE ×2 (10:50→11:34)
[2024-03-24] MEDS ORDERED: METHYLERGONOVINE 0.2 MG/ML VIAL ONE ×2 (10:50→12:16)
[2024-03-24] MEDS ORDERED: PROPOFOL 200 MG/20 ML VIAL IVP ONE ×3 (10:50→12:13)
[2024-03-24] MEDS ORDERED: LIDOCAINE-PF 2% 10 ML AMP SUBQ ONE ×2 (10:50→11:35)
[2024-03-24] MEDS ORDERED: ONDANSETRON 4 MG/2 ML VIAL ONE ×2 (10:50→11:45)
[2024-03-24] MEDS ORDERED: DEXAMETHASONE 4 MG/ML VIAL ONE ×2 (10:50→11:46)
[2024-03-24] MEDS ORDERED: LEVONORGESTREL 20 MCG/24H IUD IY ONE ×2 (10:50→10:53)
[2024-03-24] MEDS ORDERED: DOXYCYCLINE 100 MG TABLET PO ONE ×3 (10:50→10:53)
[2024-03-24] MEDS ORDERED: SCOPOLAMINE PATCH TOP ONE ×2 (10:50→11:40)
[2024-03-24] MEDS ORDERED: LIDOCAINE-MPF 2% 5 ML VIAL ONE ×2 (10:50→11:37)
[2024-03-24] MEDS ORDERED: KETAMINE 500 MG/10 ML VIAL ONE ×2 (10:50→12:15)
[2024-03-24 11:26] LABS: BASOPHILS % (AUTO) 0.2 %; EOSINOPHILS # (AUTO) 0.2 10^3/uL (0.0-0.7); EOSINOPHILS % (AUTO) 1.6 %; LYMPHOCYTES # (AUTO) 2.3 10^3/uL (1.5-3.5); LYMPHOCYTES % (AUTO) 25.2 %; MEAN CORPUSCULAR HEMOGLOBIN 29.2 pg (27.0-31.0); MEAN CORPUSCULAR HGB CONC 33.3 g/dL (32.0-36.0); MEAN CORPUSCULAR VOLUME 87.5 fL (81.0-99.0); MEAN PLATELET VOLUME 9.3 fL (7.9-10.8); MONOCYTES # (AUTO) 0.6 10^3/uL (0.0-1.0); MONOCYTES % (AUTO) 6.1 %; NEUTROPHILS # (AUTO) 6.1 10^3/uL (1.5-6.6); NEUTROPHILS % (AUTO) 66.6 %; PLT - PLATELET COUNT 294 10^3/uL (130-450); RED BLOOD COUNT 3.77 10^6/uL (4.20-5.40); WHITE BLOOD COUNT 9.2 x10^3/uL (4.8-10.8)
[2024-03-24] MEDS ORDERED: LIDOCAINE 1%-EPI 1:100000 20 ML MDV ONE (11:30)
[2024-03-24] MEDS ORDERED: VASOPRESSIN 20 UNIT/ML VIAL ONE (11:40)
[2024-03-24] MEDS ORDERED: miSOPROStoL 200 MCG TABLET ONE (12:15)
[2024-03-24] MEDS ORDERED: CARBOPROST TROMETHAMINE 250 MCG/ML VIAL IM ONE (12:16)
[2024-03-24] MEDS: LEVONORGESTREL 20 MCG/24H IUD IY ONE (12:30)
[2024-03-24] MEDS ORDERED: ONDANSETRON 4 MG/2 ML VIAL IVP PRN ×2 (12:50→12:59)
[2024-03-24] MEDS ORDERED: oxyCODONE 5 MG TABLET PO PRN (12:50)
[2024-03-24] MEDS ORDERED: fentaNYL 100 MCG/2 ML VIAL IVP PRN (12:59)
[2024-03-24] MEDS ORDERED: ATROPINE ABBOJECT 1 MG/10 ML SYRINGE IVP PRN (12:59)
[2024-03-24] MEDS ORDERED: HYDROmorphone 0.5 MG/0.5 ML SYRINGE IVP PRN (12:59)
[2024-03-24] MEDS ORDERED: NALOXONE 0.4 MG/ML VIAL IVP PRN (12:59)
[2024-03-24] MEDS ORDERED: MORPHINE 2 MG/ML CARPUJECT IVP PRN (12:59)
[2024-03-24] MEDS ORDERED: ePHEDrine 50 MG/ML VIAL IVP PRN (12:59)
[2024-03-24] MEDS ORDERED: LACTATED RINGERS 1,000 ML IV SCH (13:00)
[2024-03-24] MEDS ORDERED: KETOROLAC 30 MG/ML VIAL IVP SCH (13:00)
--- NOTE | 2024-03-24 13:02 | ANESTHESIA ---
Pre-Anesthesia VS, & Labs - Diagnosis desired pergnancy termination, control - Procedure D&C, IUD placement Height: 5 ft 6 in Weight (kg): 82.1 kg Body Mass Index: 29.2 BMI Classification: Overweight - NPO >8 hours - Is Patient ?: Yes - Lab Results Current Lab Results: Laboratory Tests 03/24/24 11:10: Blood Type A POSITIVE 03/24/24 11:10: WBC 9.2, RBC 3.77 L, Hgb 11.0 L, Hct 33.0 L, MCV 87.5, MCH 29.2, MCHC 33.3, RDW 13.0, Plt Count 294, MPV 9.3, Neut # (Auto) 6.1, Lymph # (Auto) 2.3, [place] # (Auto) 0.6, Eos # (Auto) 0.2, Baso # (Auto) 0.0, Absolute Nucleated RBC 0.00, Nucleated RBC % 0.0 Fish Bones: 03/24/24 11:10 Home Medications and Allergies Home Medications: Ambulatory Orders Dextroamphetamine/Amphetamine [Adderall 20 mg Tablet] 20 mg ORAL DAILY 03/24/24 Naltrexone HCl 50 mg ORAL DAILY 03/24/24 Active Medications Iron Dextran 1,000 mg/ Sodium (Chloride) 270 mls @ 270 mls/hr IV ONCE ONE Stop: 03/24/24 12:56 Ketorolac Tromethamine (Ketorolac 30 Mg/Ml Vial) 30 mg IVP Q6H LITO Stop: 03/25/24 07:01 Ondansetron HCl (Ondansetron 4 Mg/2 Ml Vial) 4 mg IVP Q6HR PRN PRN Reason: Nausea / Vomiting Oxycodone HCl (Oxycodone 5 Mg Tablet) 5 mg PO Q4HR PRN PRN Reason: Moderate Pain (Level 4-6) Dextroamphetamine/Amphetamine [Adderall 20 mg Tablet] 20 mg ORAL DAILY 03/24/24 Naltrexone HCl 50 mg ORAL DAILY 03/24/24 Allergies/Adverse Reactions: Allergies Allergy/AdvReac Type Severity Reaction Status Date / Time No Known Drug Allergies Allergy Verified 06/27/23 22:17 Anes History & Medical History - Anesthetic History Anesthesia Complications: reports: No previous complications Family history of Anesthesia Complications: Denies Family history of Malignant Hyperthermia: Denies - Medical History Cardiovascular: reports: None Pulmonary: reports: Asthma Gastrointestinal: reports: None, Other (currently nauseated) Urinary: reports: None Neuro: reports: Head injury Musculoskeletal: reports: Osteoarthritis Endocrine/Autoimmune: reports: None Blood Disorders: reports: None Skin: reports: Eczema Smoking Status: Current every day smoker Psychosocial: reports: Depression (pt reports daily meth use, last used yeserday morning), Anxiety, Substance abuse, Amphetamine, Other History of Cancer?: No Exam General: Alert, Oriented x3, Cooperative Dental: WNL Mouth Openin Fingerbreadth Neck Mobility: Normal Mallampati classification: II Thyromental Distance: 4-6 cm Respiratory: Lungs clear Cardiovascular: Regular rate Plan Anesthesia Type: General Consent for Procedure(s) Verified and Reviewed: Yes Code Status: Attempt Resuscitation ASA classification: 3-Severe systemic disease Is this case an emergency?: No
[2024-03-24] MEDS: IRON DEXTRAN 1,000 MG in SODIUM CHLORIDE 0.9% 250 ML IV ONE (13:40)
[2024-03-24 13:52] VITALS: O2SAT 100
--- NOTE | 2024-03-24 14:01 | ANESTHESIA POST OP EVALUATION ---
Anesthesia Post Eval - Post Anesthesia Eval Vitals: Last Vital Signs Temp 36.3 C L 03/24/24 13:48 Pulse 73 03/24/24 13:48 Resp 16 03/24/24 13:48 BP 99/68 03/24/24 13:48 Pulse Ox 100 03/24/24 13:48 O2 Flow Rate CV Function Including HR & BP: Stable Pain Control: Satisfactory Nausea & Vomiting: Negative Mental Status: Baseline Respiratory Status: Airway Patent Hydration Status: Satisfactory Anesthesia Complications: None
[2024-03-24 14:55] VITALS: BP 106/70
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
== END 2024-03-24 10:37 | disposition home or self-care (01) ==
LOC: OR 10:36
PROVIDERS: ATTEND Obstetrics & Gynecology
PROC: 10A07Z6 Abortion of Products of Conception, Vacuum, Via Natural or Artificial Opening (ICD-10-PCS; principal; 2024-03-24 11:30)
PROC: 0UH97HZ Insertion of Contraceptive Device into Uterus, Via Natural or Artificial Opening (ICD-10-PCS; 2024-03-24 11:30)
DX: Z33.2 Encounter for elective termination of pregnancy (principal); Z30.430 Encounter for insertion of intrauterine contraceptive device; J98.01 Acute bronchospasm; J45.909 Unspecified asthma, uncomplicated; F17.200 Nicotine dependence, unspecified, uncomplicated; F32.A Depression, unspecified; F41.9 Anxiety disorder, unspecified; F15.10 Other stimulant abuse, uncomplicated
CPT/HCPCS: 58300; 59841; 85025; 86900; 86901; A9270; J1200; J1750; J2210; J3490; J7120; J7298